=== PATIENT | female | born 1955 | race Native Hawaiian/Other Pacific Islander ===

== ENCOUNTER → 2018-04-29 | Outpatient (CLI) | payer OTHER ==
--- NOTE | ~2018-04-29 | P ---
[facility] [place] [address] PROCEDURE REPORT Name: JUAN ALBARADO Room #: REG [facility]#: [id number] Admission: 04/29/18 Attend Phys: Jesse Hanley MD Discharge: Date of : 55 Report #: [id number] THIS REPORT FOR: //name// CC: Kaden Hanley BRIEF HISTORY: The patient is a 62-year-old woman who presents for her first average risk screening colonoscopy. PREOPERATIVE DIAGNOSIS: Average risk screening colonoscopy. POSTOPERATIVE DIAGNOSES: 1. Diminutive polyp at 35 cm. 2. Moderate internal hemorrhoids. MEDICATIONS: Deep sedation with propofol per anesthesia. SPECIMEN: Polyp from 35 cm. ESTIMATED BLOOD LOSS: 3 mL. PROCEDURE: Colonoscopy to cecum and terminal ileum with biopsy. FINDINGS: Prior to propofol sedation, procedure of colonoscopy discussed with the patient as well as potential risks, benefits, and complications. She indicates she understands and desires to proceed. With the patient in left lateral decubitus position, digital examination was completed, which revealed no abnormalities. Subsequently, the [employer] video colonoscope was introduced in the rectum, advanced under direct vision to the cecum. Done with minimal difficulty. The cecum was identified by the ileocecal valve and the appendiceal orifice. I was able to visualize the distal segment of terminal ileum, which was inspected and noted to be unremarkable. At that point, the scope was slowly withdrawn and careful circumferential views obtained including retroflexing the scope in the ascending colon. Upon slow withdrawal of the scope, the prep was good. The mucosa was within normal limits, normal vascular pattern, and normal light reflex. As we withdrew scope, no mucosal abnormalities were noted until the scope was withdrawn in the sigmoid colon and at 35 cm, a diminutive polyp was seen and removed by biopsy. Scope was further withdrawn and no additional polypoid lesions were seen. Scope was withdrawn in the rectum. Upon retroflexion, several moderate internal hemorrhoids were seen. There was no evidence of bleeding. Scope was withdrawn. The patient tolerated the procedure well. CONDITION OF THE PATIENT UPON DISCHARGE: Following procedure, the patient drowsy and arousable, she will be discharged home when fully ambulatory. [facility] [address] [place] [address] PROCEDURE REPORT Name: JUAN ALBARADO Room #: REG [facility]#: [id number] Admission: 04/29/18 Attend Phys: Jesse Hanley MD Discharge: Date of : 55 Report #: [id number] INSTRUCTIONS TO THE PATIENT AND FAMILY AT THE TIME OF DISCHARGE: One diminutive polyp identified and removed as described above. We will follow up on the path. If this is an adenoma, she should return in 5 years; if not, then 10 years would be indicated. She should return to the care of Dr. Kaden Randall and return to see me as needed. This is the patient's first screening colonoscopy. Withdrawal time from cecum was 13 minutes 54 seconds. <ELECTRONICALLY SIGNED> By: Jesse Hanley MD 04/29/18 1559 [id number] [id number] Jesse Hanley MD /nt
--- NOTE | ~2018-04-29 | PATH ---
[facility] [address] [place] [address] PATHOLOGY RPT PROCEDURE Name: FLOWER ALBARADO A Room #: REG [facility].#: [id number] Admission: 04/29/18 Date of : 55 Discharge: Report #: [id number] Path Case #: [id number] [facility] Accession Number: [id number] . 01 Material submitted: . POLYP AT 35 CM . 01 Clinical history: . Screening, colon polyp . 02 Diagnosis: Polyp, at 35 cm, endoscopic biopsy: - Tubular adenoma. - Negative for high-grade dysplasia. (IUV:jf; 04/30/2016) QMS/04/30/2018 . 02 Electronically signed: . Betzy Mccormick MD, Pathologist NPI- [id number] . 01 Gross description: . The specimen is received in formalin, labeled" Flower Albarado and polyp at 35 cm", is a 0.3 cm in greatest dimension cox soft tissue, entirely submitted in A1. . (SWS; 04/29/2018) SHS/SHS . 02 Pathologist provided ICD-10: D12.6 . 02 CPT . 300953 Performed at: [address], [place] [id number] MD Hilton Cordero MD Phone: [phone] Performed at: [address] [id number] MD Betzy Mccormick MD Phone: [phone]
== END | disposition home or self-care (01) ==
LOC: GI 10:21
DX: Z12.11 Encounter for screening for malignant neoplasm of colon (principal); D12.5 Benign neoplasm of sigmoid colon; K64.8 Other hemorrhoids
CPT/HCPCS: 62110; 62900